=== PATIENT | female | born 1945 | race Two or more races ===

== ENCOUNTER 2018-04-16 12:51 | Emergency (ER) | payer MEDICAID ==
[~2018-04-16] VITALS: Ht 154.9 cm; Wt 96.2 kg
[2018-04-16] MEDS ORDERED: METFORMIN HCL500 M1 ORAL (13:17)
[2018-04-16] MEDS ORDERED: ASPIRIN81 MG ORAL (13:17)
[2018-04-16] MEDS ORDERED: OMEPRAZOLE20 M2 ORAL (13:17)
[2018-04-16] MEDS ORDERED: GLIPIZIDE5 MG ORAL (13:17)
[2018-04-16] MEDS ORDERED: LISINOPRIL20 MG ORAL (13:17)
[2018-04-16] MEDS ORDERED: ATORVASTATIN CA20 MG ORAL (13:17)
[2018-04-16] MEDS ORDERED: JANUVIA25 MG ORAL (13:17)
[2018-04-16] MEDS ORDERED: Methocarbamol 750mg tab ORAL ONE (13:30)
[2018-04-16] MEDS ORDERED: ROBAXIN-750750 MG PO (13:31)
[2018-04-16] MEDS ORDERED: IBUPROFEN600 MG ORAL (13:31)
--- NOTE | 2018-04-16 13:37 | Emergency Room Report ---
History of Present Illness General Chief Complaint: Pain Source: Patient Present Illness HPI Patient presents with initially complaint on the triage note noting left knee pain however patient actually complaining of left sciatic pain lower back Radiates to the lateral aspect of the buttock and thigh area Denies any fall or trauma reports the pain started 2 weeks ago 7 out of 10 denies any midline pain denies any saddle paresthesia Allergies: Coded Allergies: No Known Allergies (Unverified , 04/16/18) Patient History Past Medical History: see triage record Pertinent Family History: none Reviewed Nursing Documentation: PMH: Agreed; PSxH: Agreed Nursing Documentation-PMH Past Medical History: No History, Except For Hx Hypertension: Yes Hx Diabetes: Yes Review of Systems All Other Systems: negative except mentioned in HPI Physical Exam Vital Signs Date Time Temp Pulse Resp B/P (MAP) Pulse Ox O2 Delivery O2 Flow Rate FiO2 04/16/18 13:09 98.2 62 18 127/63 97 Room Air Sp02 EP Interpretation: reviewed, normal General Appearance: well appearing, no apparent distress Head: normocephalic, atraumatic Eyes: bilateral eye PERRL, bilateral eye EOMI ENT: hearing grossly normal, normal pharynx, TMs + canals normal, uvula midline Neck: full range of motion, supple, no meningismus, no bony tend Respiratory: lungs clear, normal breath sounds, no rhonchi, no respiratory distress, no retraction, no accessory muscle use Cardiovascular #1: normal peripheral pulses, regular rate, rhythm, no edema, no gallop, no JVD, no murmur Gastrointestinal: normal bowel sounds, non tender, soft, no mass, no organomegaly, non-distended, no guarding, no hernia, no pulsatile mass, no rebound Genitourinary: no CVA tenderness Musculoskeletal: other - Some discomfort palpated over the left posterior superior iliac crest no midline tenderness patient lifting leg and moving extremities without focal deficit Neurologic: oriented x3, responsive, 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 nml as tested, motor strength/ tone normal, sensory intact Psychiatric: mood/affect normal Skin: normal color, no rash, warm/dry, palpation normal Lymphatic: normal inspection, no adenopathy Medical Decision Making Diagnostic Impression: Primary Impression: sciatica Additional Impression: Back pain ER Course Given the history and exam multiple differentials considered including but not limited to neurological, neurosurgical, orthopedic differentials Patient on further questioning is here with her daughter who has complaints on the right side of the sciatic region Given the lack of any trauma Patient presented with fairly mechanical-type complaints She is treated for pain and will have initial conservative outpatient trial Last Vital Signs Date Time Temp Pulse Resp B/P (MAP) Pulse Ox O2 Delivery O2 Flow Rate FiO2 04/16/18 13:09 98.2 62 18 127/63 97 Room Air Status: improved Disposition: HOME, SELF-CARE Condition: Improved Scripts Methocarbamol* (ROBAXIN-750*) 750 Mg Tablet 750 MG PO TID, #21 TAB 0 Refills Prov: Lindsay Pascal DO 04/16/18 Ibuprofen* (MOTRIN*) 600 Mg Tablet 600 MG ORAL Q8H PRN for For Pain, #20 TAB 0 Refills Prov: Lindsay Pascal DO 04/16/18 Patient Instructions: Sciatica, [id number], Back Pain, Adult, [id number] Additional Instructions: Patient is provided with the discharge instructions notified to follow up with primary doctor in the next 2-3 days otherwise return to the er with any worsening symptoms. Please note that this report is being documented using [employer] technology. This can lead to erroneous entry secondary to incorrect interpretation by the dictating instrument. Lindsay Pascal DO Apr 16, 2018 13:37
[2018-04-16 13:42] VITALS: BP 120/58
== END 2018-04-16 13:45 | disposition home or self-care (01) ==
LOC: EDBD 12:51 → EMR 13:40
DX: M54.42 Lumbago with sciatica, left side (principal); I10 Essential (primary) hypertension; E11.9 Type 2 diabetes mellitus without complications
CPT/HCPCS: 99282